=== PATIENT | male | born 1990 | race Two or more races ===

== ENCOUNTER 2018-12-21 00:01 | Emergency (ER) | payer BC ==
[~2018-12-21] VITALS: Ht 188 cm; Wt 113.4 kg
--- NOTE | 2018-12-21 00:29 | NUR ---
Dr. Lebron at bedside for MSE.
[2018-12-21 00:59] LABS: EOSINOPHILS # (AUTO) 0.1 K/uL (0.0-0.7); LYMPHOCYTES # (AUTO) 0.8 K/uL (20.0-40.0); MONOCYTES # (AUTO) 0.3 K/uL (2.0-10.0)
[2018-12-21 01:09] LABS: POTASSIUM 4.1 mmol/L (3.5-5.1)
[2018-12-21 01:13] LABS: BASOPHILS % (AUTO) 0.8 % (0.0-2.0); EOSINOPHILS % (AUTO) 1.9 % (0.0-7.0); HEMATOCRIT 48.3 % (36.7-47.1); HEMOGLOBIN 15.9 g/dL (12.5-16.3); LYMPHOCYTES % (AUTO) 15.2 % (20.5-51.5); MEAN CORPUSCULAR HEMOGLOBIN 27.6 uug (23.8-33.4); MEAN CORPUSCULAR HGB CONC 33 g/dL (32.5-36.3); MEAN CORPUSCULAR VOLUME 83.9 fL (73.0-96.2); MONOCYTES % (AUTO) 5.3 % (0.0-11.0); NEUTROPHILS # (AUTO) 3.9 K/uL (1.8-8.9); NEUTROPHILS % (AUTO) 76.8 % (38.5-71.5); PLATELET COUNT (AUTO) 200 K/uL (152-348); RED BLOOD CELL COUNT(AUTO) 5.77 MIL/uL (4.06-5.63)
--- NOTE | 2018-12-21 01:30 | NUR ---
Patient discharged to home in stable conditon. Written and verbal after care instructions given. Patient verbalizes understanding of instructions. Pt ambulated out of ER with steady gait, no acute signs of distress, VSS, all belongings taken.
[2018-12-21 01:31] VITALS: BP 136/85
== END 2018-12-21 02:07 | disposition home or self-care (01) ==
LOC: ER 00:08
DX: R42 Dizziness and giddiness (principal); R41.0 Disorientation, unspecified; F41.9 Anxiety disorder, unspecified
CPT/HCPCS: 36415; 85025; 93005; A4663